=== PATIENT | female | born 1980 | race Hispanic/Latino ===

== ENCOUNTER 2022-11-25 20:44 | Emergency (ER) | payer OTHER ==
[2022-11-25 21:15] VITALS: BP 130/80
[2022-11-25 21:57] LABS: BASO% 0.2 % (0-3); EOS% 2.9 % (0-8); HEMATOCRIT 38.5 % (37.0-47.0); HEMOGLOBIN 12.3 g/dl (12.0-16.0); IMMATURE GRANULOCYTES 0.1 % (0.0-5.0); LYMPH% 31.2 % (15-41); MEAN CELL VOLUME 87.1 fL CALC (80.0-100.0); MEAN CORPUSCULAR HGB 27.8 pG CALC (26.0-32.0); MEAN CORPUSCULAR HGB CONC 31.9 g/dL CAL (32.0-36.0); MONO% 6.3 % (2-13); NEUT# 5.24 thou/uL (2.00-7.15); NEUT% 59.3 % (42-76); RED BLOOD COUNT 4.42 mill/uL (4.20-5.60); RED CELL DISTRI WIDTH 12.7 % (11.5-15.5)
[2022-11-25 22:03] LABS: ALBUMIN 4.1 g/dL (3.2-5.0); ALKALINE PHOSPHATASE 76 u/l (38-126); ANION GAP 11 (6-22 (CALC)); BILIRUBIN, TOTAL 0.2 mg/dL (0.02-1.3); BUN 13 mg/dL (7-17); BUN/CREATININE RATIO 18 (12-20 (CALC)); CARBON DIOXIDE 25 mmol/l (22-30); CHLORIDE 105 mmol/l (95-108); CREATININE 0.7 mg/dL (0.5-1.0); GFR FOR AFR.AMER. > 60 ML/MIN (>=60 (CALC)); GFR OTHER RACES > 60 ML/MIN (>=60 (CALC)); POTASSIUM 3.7 mmol/l (3.5-5.1); SGOT/AST 36 u/l (14-36); SODIUM 136 mmol/l (137-146); TOTAL PROTEIN 7.4 g/dL (6.3-8.2)
[2022-11-26 00:01] VITALS: BP 99/58
[2022-11-26 00:15] VITALS: BP 119/71
[2022-11-26] MEDS ORDERED: MECLIZINE25 MG PO (00:21)
[2022-11-26 01:05] VITALS: BP 119/71
== END 2022-11-26 01:10 | disposition home or self-care (01) | DRG 149 ==
LOC: ED 20:44
PROVIDERS: Family Medicine
DX: H81.10 Benign paroxysmal vertigo, unspecified ear (principal)

== ENCOUNTER 2023-01-01 15:53 | Emergency (ER) | payer OTHER ==
[~2023-01-01] VITALS: Ht 162.6 cm; Wt 96.8 kg
[~2023-01-01 15:53] MED LIST: MECLIZINE25 MG PO
[2023-01-01 16:29] VITALS: BP 109/69
== END 2023-01-01 16:44 | disposition home or self-care (01) | DRG 125 ==
LOC: ED 15:53
DX: H00.013 Hordeolum externum right eye, unspecified eyelid (principal)